=== PATIENT | male | born 1960 | race Caucasian/White ===

== ENCOUNTER 2021-04-18 14:32 | Emergency (ER) | payer OTHER, SELFPAY ==
--- NOTE | ~2021-04-18 | CT_ITS ---
EXAMINATION: CTA chest PE protocol DATE: 04/18/2021 16:43 INDICATION: Chest pain, elevated d-dimer, shortness of breath TECHNIQUE: Computed tomography angiography (CTA) of the chest was performed with 100 mL Omnipaque-350 intravenous contrast timed to evaluate the pulmonary arteries. Coronal maximum intensity projection 3D-reconstructions were created by the technologist. The dose-length product (DLP) was 438.99 mGy-cm. Automated exposure control and iterative reconstruction technique were employed. COMPARISON: None. FINDINGS: The pulmonary arteries are well-opacified. No pulmonary embolism is identified. There is mi ld dependent atelectasis. The lungs are free of focal airspace opacities. Calcified right hilar and m ediastinal lymph nodes are consistent with old granulomatous disease. No pathologically enlarged thor acic lymph nodes are identified. The heart size is normal. There is mild thoracic spondylosis. IMPRESSION: 1. No pulmonary embolism or acute cardiopulmonary abnormality. Reviewed, dictated and finalized at location [facility]. [facility]
[2021-04-18 15:16] VITALS: BP 168/97; PULSE 97; RESP 16; TEMP 36.1; O2SAT 97
--- NOTE | 2021-04-18 15:16 | ECG_ITS ---
Measurements Intervals [place] Rate: 70 P: 51 UT: 175 QRS: 14 QRSD: 103 T: 55 QT: 351 QTc: 379 Interpretive Statements SINUS RHYTHM WITH SINUS ARRHYTHMIA DELAYED PRECORDIAL R/S TRANSITION MINIMAL Q WAVES- INFERIOR LEADS BORDERLINE ECG Electronically Signed On 04-18-2021 16:09:48 [employer] by Jb Malik D.O.
[2021-04-18 15:34] LABS: Basophils Percent Auto 1.3 % (0.0-1.0); Eosinophils Absolute Auto 0.03 K/mm3 (0.02-0.50); Eosinophils Percent Auto 0.4 % (1.0-6.0); Hematocrit 43.6 % (40.0-54.0); Hemoglobin 14.6 g/dL (14.0-18.0); Immature Granulocyte Absolute 0.04 K/mm3 (0.00-0.00); Immature Granulocyte Percent A 0.5 % (0.0-0.0); Lymphocytes Absolute Auto 2.05 K/mm3 (1.10-4.50); Lymphocytes Percent Auto 26.5 % (18.0-42.0); Mean Corpuscular HGB Conc 33.5 g/dL (32.0-36.0); Mean Corpuscular Hemoglobin 28.7 pg (27.0-31.0); Mean Corpuscular Volume 85.8 fL (78.0-102.0); Mean Platelet Volume 8.5 fl (8.7-11.0); Monocytes Absolute Auto 0.64 K/mm3 (0.10-0.90); Monocytes Percent Auto 8.3 % (2.0-11.0); Neutrophils Absolute Auto 4.9 K/mm3 (1.7-7.2); Platelet Count Result 319 K/mm3 (150-420); Red Blood Count 5.08 M/mm3 (4.70-6.10); Red Cell Distribution Width 12.2 % (11.6-14.4); White Blood Count 7.8 K/mm3 (4.8-10.8)
[2021-04-18] MEDS: KETOROLAC (*BKC) 60 MG/2 ML VIAL IM (15:37)
[2021-04-18 15:52] LABS: Alanine Aminotransferase 38 U/L (16-63); Albumin Level 3.8 g/dL (3.4-5.0); Alkaline Phosphatase 129 U/L (46-116); Anion Gap 10 mmol/L (8-16); Aspartate Amino Transferase 19 U/L (15-37); Bilirubin,Total 0.3 mg/dL (0.00-1.00); Blood Urea Nitrogen 11 mg/dL (7-18); Calcium 9.5 mg/dL (8.5-10.1); Carbon Dioxide 26 mmol/L (21-32); Chloride 102 mmol/L (98-108); Estimated CRCL calculation 64 ml/min; Estimated Glomerular Filt Rate > 60; Glucose 132 mg/dL (70-99); Osmolality Calculated 287 mOsm/kg (285-295); Sodium 138 mmol/L (136-145); Total Protein 8.5 g/dL (6.4-8.2); Troponin I 6.3 ng/L (0.00-60.4)
[2021-04-18 15:55] LABS: D Dimer 4.32 mg/L (0.19-0.50)
--- NOTE | 2021-04-18 17:00 | ED.URI ---
HPI - URI/Sore Throat General Chief Complaint: Upper Respiratory Infection Stated Complaint: chest pain/headache/sore throat/Covid- last Thu Source: patient Mode of arrival: ambulatory Limitations: no limitations History of Present Illness HPI Narrative: This is a 60-year-old gentleman that presents with some pleuritic-type chest pain pain with deep inspiration started a couple of days ago call his primary care physician that was concerning mass and come to the emergency room to be evaluated. There was no chest pain no shortness of breath no fever chills no nausea vomiting no abdominal pain. Patient had a COVID test that was negative performed on this past Thursday and the patient is up-to-date with his COVID vaccines as well as his booster. Severity: moderate Pain scale (0-10): 5 Related Data Home Medications Medication Instructions Recorded Confirmed No Home Medications 04/18/21 04/18/21 Allergies Allergy/AdvReac Type Severity Reaction Status Date / Time No Known Allergies Allergy Verified 04/18/21 15:21 Review of Systems Review of Systems: All systems reviewed & are unremarkable except as noted in HPI and below PMFSH Past Medical History Medical History Patient denies medical problems Exam Const: General: no acute distress and alert Orientation/consciousness: patient oriented x3 HENMT: Head: normal to inspection Eyes: Conjunctivae: conjunctivae normal Pupils: Equal, round and reactive pupils present Neck: Neck: normal visual inspection, no lymphadenopathy and no meningeal signs Chest: Chest palpation & inspection: normal inspection of the chest Resp: Effort & Inspection: normal respiratory effort Auscultation: clear to auscultation bilaterally Cardio: Rate: regular rate Rhythm: regular rhythm GI: GI Palp: Yes Soft to palpation Percussion: Yes normal to percussion : Testes: Testes normal Urinary Catheter: Urinary Catheter: patent and draining Back/Spine/Pelvis: Back: no CVA tenderness Skin: General skin exam: normal color Rashes: no rashes Neuro: General: patient oriented x3, moves all extremities, no meningeal signs and no focal motor deficits Extrem: General: normal to inspection and no pedal edema Psych: Mental Status: mental status grossly normal Course Course Emergency Course: patient had an elevated D-dimer, with a CTA performed which was negative for pulmonary embolism, labs reviewed with patient. Vital Signs Vital signs: Vital Signs Temperature 36.1 C L 04/18/21 15:16 Pulse Rate 97 04/18/21 15:16 Respiratory Rate 16 04/18/21 15:16 Blood Pressure 168/97 H 04/18/21 15:16 Pulse Oximetry 97 04/18/21 15:16 Temperature 36.1 C L 04/18/21 15:16 Pulse Rate 97 04/18/21 15:16 Respiratory Rate 16 04/18/21 15:16 Blood Pressure 168/97 H 04/18/21 15:16 Pulse Oximetry 97 04/18/21 15:16 MDM - URI/Sore Throat Lab Data Result diagrams: 04/18/21 15:30 04/18/21 15:30 Labs: Lab Results 04/18/21 04/18/21 04/18/21 Range/Units 15:29 15:30 15:30 WBC 7.8 (4.8-10.8) K/mm3 RBC 5.08 (4.70-6.10) M/mm3 Hgb 14.6 (14.0-18.0) g/dL Hct 43.6 (40.0-54.0) % MCV 85.8 (78.0-102.0) fL MCH 28.7 (27.0-31.0) pg MCHC 33.5 (32.0-36.0) g/dL RDW 12.2 (11.6-14.4) % Plt Count 319 (150-420) K/mm3 MPV 8.5 L (8.7-11.0) fl Immature Gran % (Auto) 0.5 H (0.0-0.0) % Neut % (Auto) 63.0 (50.0-70.0) % Lymph % (Auto) 26.5 (18.0-42.0) % [place] % (Auto) 8.3 (2.0-11.0) % Eos % (Auto) 0.4 L (1.0-6.0) % Baso % (Auto) 1.3 H (0.0-1.0) % Lymph # (Auto) 2.05 (1.10-4.50) K/mm3 [place] # (Auto) 0.64 (0.10-0.90) K/mm3 Eos # (Auto) 0.03 (0.02-0.50) K/mm3 Baso # (Auto) 0.10 (0.00-0.10) K/mm3 Abs Immat Gran (auto) 0.04 H (0.00-0.00) K/mm3 Absolute Neuts (auto) 4.9 (1.7-7.2) K/mm3 Absolute Nucleated RBC
[2021-04-18 17:27] LABS: SARS-CoV-2 RNA PCR Negative (Negative)
[2021-04-18 17:47] VITALS: BP 164/93; PULSE 61; RESP 18; O2SAT 96
== END 2021-04-18 17:48 | disposition home or self-care (01) ==
PROVIDERS: Emergency Provider Emergency Medicine; PCP Physician Assistant
DX: R09.1 Pleurisy (principal); Z20.822 Contact with and (suspected) exposure to COVID-19
CPT/HCPCS: 36415; 71275; 80053; 84484; 85025; 85380; 93005; 96372; 99283; 99284; C9803; J1885; Q9967; U0003; U0005

== ENCOUNTER 2021-08-09 08:01 | Outpatient (CLI) | payer OTHER, SELFPAY ==
--- NOTE | ~2021-08-09 | CT_ITS ---
EXAMINATION: CT abdomen pelvis w con DATE: 08/09/2021 08:58 INDICATION: Nausea, vomiting, diarrhea for one week. Diverticulosis. TECHNIQUE: Computed tomography (CT) of the abdomen and pelvis was performed with 100 CC Omnipaque 350 intravenous contrast. Automated exposure control and iterative reconstruction technique were employe d. Exam dose: 892.92 mGy-cm total exam DLP. COMPARISON: None. FINDINGS: Calcified right hilar and subcarinal nodes and splenic calcified granulomas, consistent wit h old granulomatous disease. The lung bases are clear of infiltrate or consolidation. Normal heart size. No pericardial or pleural effusion. Small sliding hiatal hernia. There is diffuse hepatic steatosis. No hepatic space-occupying mass lesion. The gallbladder appears n ormal. No bile duct or pancreatic duct dilatation. No pancreatic mass lesion or calcification. Border line splenomegaly, spleen measuring up to 13.9 cm vertical dimension. Normal morphology of the adrenal glands. No renal mass lesion or urinary tract calculus or hydroureteronephrosis. There is mild diffuse urinar y bladder wall thickening and mild prostate enlargement. There is atherosclerotic calcification of the abdominal aorta and iliac arteries but no aneurysm. No intraperitoneal or retroperitoneal or pelvic mass lesion or adenopathy or ascites. Normal appendix. There is some liquid stool in the colon. No bowel obstruction or bowel wall thickeni ng, pneumatosis or intraperitoneal free air. Occasional osteosclerotic lesions are noted including at right T7 transverse process, sacrum and righ t femoral head, most likely benign bone islands. Less likely differential diagnosis would include ost eosclerotic prostate metastases. IMPRESSION: Small sliding hiatal hernia Hepatic steatosis Borderline splenomegaly Mild prostate enlargement, diffuse urinary bladder wall thickening Normal appendix There is some liquid stool the colon, consistent with history of diarrhea; no bowel obstruction or fr ee air Reviewed, dictated and finalized at [facility]. Reviewed, dictated and finalized at location [facility]. IMPRESSION: Small sliding hiatal hernia Hepatic steatosis Borderline splenomegaly Mild prostate enlargement, diffuse urinary bladder wall thickening Normal appendix There is some liquid stool the colon, consistent with history of diarrhea; no b owel obstruction or free air
[2021-08-09 08:34] LABS: Estimated Glomerular Filt Rate > 60
== END 2021-08-09 08:02 | disposition home or self-care (01) ==
LOC: CHSIMG 08:05
PROVIDERS: PCP Family Medicine; Visit Provider Physician Assistant
DX: K57.90 Diverticulosis of intestine, part unspecified, without perforation or abscess without bleeding (principal)
CPT/HCPCS: 74177; Q9967

== ENCOUNTER 2021-08-15 10:53 | Emergency (ER) | payer OTHER, SELFPAY ==
--- NOTE | ~2021-08-15 | XR_ITS ---
EXAMINATION: XR chest 2V 08/15/2021 11:29 INDICATION: Left-sided chest pain with shortness of breath PROCEDURE: 2 view chest COMPARISON: No prior studies for comparison. FINDINGS: The lungs are clear. The cardiomediastinal silhouette is within normal limits. There are no pleural effusions. There is no pneumothorax suspected. IMPRESSION: 1: NO ACUTE CARDIOPULMONARY DISEASE. Reviewed, dictated and finalized at location B.
[2021-08-15 11:04] VITALS: BP 164/88; PULSE 65; RESP 22; TEMP 36.6; O2SAT 98
--- NOTE | 2021-08-15 11:15 | ECG_ITS ---
Measurements Intervals [place] Rate: 61 P: 56 RI: 185 QRS: 66 QRSD: 102 T: 74 QT: 366 QTc: 371 Interpretive Statements SINUS RHYTHM DELAYED PRECORDIAL R/S TRANSITION MINIMAL Q WAVES- INFERIOR LEADS BASELINE ARTIFACT- I, II ,III, AVR, AVL, AVF BORDERLINE ECG Electronically Signed On 08-15-2021 12:35:17 CDT by Jb Malik D.O.
[2021-08-15] MEDS: MAG HYDROX/ALUMINUM HYD/SIMETH 30 ML, PHENobarb/HYOSCY/ATROPINE/SCOP 32.4 MG, LIDOCAINE... PO (11:20)
[2021-08-15 11:54] LABS: Basophils Absolute Auto 0.09 K/mm3 (0.00-0.10); Basophils Percent Auto 1.3 % (0.0-1.0); Eosinophils Absolute Auto 0.05 K/mm3 (0.02-0.50); Eosinophils Percent Auto 0.7 % (1.0-6.0); Hematocrit 42.9 % (40.0-54.0); Hemoglobin 14.5 g/dL (14.0-18.0); Immature Granulocyte Absolute 0.07 K/mm3 (0.00-0.00); Lymphocytes Absolute Auto 1.79 K/mm3 (1.10-4.50); Lymphocytes Percent Auto 25.1 % (18.0-42.0); Mean Corpuscular HGB Conc 33.8 g/dL (32.0-36.0); Mean Corpuscular Hemoglobin 29.2 pg (27.0-31.0); Mean Corpuscular Volume 86.5 fL (78.0-102.0); Mean Platelet Volume 8.9 fl (8.7-11.0); Monocytes Absolute Auto 0.51 K/mm3 (0.10-0.90); Monocytes Percent Auto 7.2 % (2.0-11.0); Neutrophils Absolute Auto 4.6 K/mm3 (1.7-7.2); Neutrophils Percent Auto 64.7 % (50.0-70.0); Platelet Count Result 276 K/mm3 (150-420); Red Blood Count 4.96 M/mm3 (4.70-6.10); Red Cell Distribution Width 12.1 % (11.6-14.4); White Blood Count 7.1 K/mm3 (4.8-10.8)
[2021-08-15 12:02] LABS: INR 0.9; Partial Thromboplastin Time 27.9 SEC (23.90-30.70); Prothrombin Time 10.1 Seconds (9.50-12.10)
--- NOTE | 2021-08-15 12:30 | PC.NURSE ---
patient is feeling much better since GI cocktail
[2021-08-15 13:27] LABS: Alanine Aminotransferase 45 U/L (6-50); Albumin Level 4.3 g/dL (3.5-5.1); Alkaline Phosphatase 153 U/L (38-126); Anion Gap 11 mmol/L (8-16); Aspartate Amino Transferase 31 U/L (17-59); Bilirubin,Total 0.2 mg/dL (0.2-1.3); Blood Urea Nitrogen 6 mg/dL (9-20); Calcium 9.6 mg/dL (8.4-10.2); Carbon Dioxide 26 mmol/L (22-30); Chloride 106 mmol/L (98-107); Estimated Glomerular Filt Rate > 60; Glucose 128 mg/dL (65-110); Lipase 77 U/L (23-300); Osmolality Calculated 295 mOsm/kg (285-295); Potassium 4.2 mmol/L (3.4-5.0); Sodium 143 mmol/L (137-145)
[2021-08-15 13:37] LABS: Troponin I < 0.012 ng/mL (0.000-0.034)
[2021-08-15 13:54] LABS: NT Pro B Type Natriuretic Pept < 11 pg/mL (5-100)
--- NOTE | 2021-08-15 14:19 | ED.ABDPAIN ---
HPI - Abdominal Pain General Chief Complaint: Abdominal Pain Stated Complaint: CHEST PAIN HERNIA? Source: patient History of Present Illness HPI narrative: This is a 6-year-old gentleman that presents after he had epigastric discomfort has a history of GERD and hiatal hernia was told by his primary care to come to the ER for evaluation of chest pain. Pain patient does not describe chest pain but describes epigastric burning with a fullness with epigastric tenderness with no nausea vomiting no shortness of breath no radiation of of pain no nausea or vomiting. MD elicited complaint: abdominal pain Onset (ago): week(s) Pain Consistency: intermittent Severity: mild Radiation: epigastric Related Data Home Medications Medication Instructions Recorded Confirmed escitalopram oxalate 20 mg PO DAILY 08/15/21 08/15/21 pantoprazole 40 mg PO DAILY 08/15/21 08/15/21 Allergies Allergy/AdvReac Type Severity Reaction Status Date / Time No Known Allergies Allergy Verified 08/15/21 11:11 Review of Systems Review of Systems: All systems reviewed & are unremarkable except as noted in HPI and below PMFSH Past Medical History Medical History Depression High cholesterol Hypertension Surgical History Surgical History H/O inguinal hernia repair right side Family History Family History Father Lung cancer Mother Liver disease Alcoholism Other Kidney disease Social History Social History Smoking packs per day: 1 Smoking cigarettes per day: 20.0 Years smoked: 20 Smoking pack-years: 20.00 Smoking status: Former smoker Tobacco type: cigarettes Alcohol intake: former Substance use: never Substance use type: does not use Exam Const: General: no acute distress and alert Orientation/consciousness: patient oriented x3 HENMT: Head: normal to inspection Eyes: Conjunctivae: conjunctivae normal Pupils: Equal, round and reactive pupils present Neck: Neck: normal visual inspection, no lymphadenopathy and no meningeal signs Chest: Chest palpation & inspection: normal inspection of the chest Resp: Effort & Inspection: normal respiratory effort Auscultation: clear to auscultation bilaterally Cardio: Rate: regular rate Rhythm: regular rhythm GI: GI Palp: Yes Soft to palpation and Yes Tenderness to palpation present (GI) ( Epigastric tenderness with palpation) Back/Spine/Pelvis: Back: no CVA tenderness Skin: General skin exam: normal color Rashes: no rashes Neuro: General: patient oriented x3 and moves all extremities Extrem: General: normal to inspection and no pedal edema Psych: Mental Status: mental status grossly normal Course Course Emergency Course: patient's EKG x-rays and labs reviewed patient did receive a GI cocktail and patient's symptoms have improved advised patient to increase Protonix to twice daily and follow up with his primary care physician. Vital Signs Vital signs: Vital Signs Temperature 36.6 C 08/15/21 11:04 Pulse Rate 65 08/15/21 11:04 Respiratory Rate 22 H 08/15/21 11:04 Blood Pressure 164/88 H 08/15/21 11:04 Pulse Oximetry 98 08/15/21 11:04 Temperature 36.6 C 08/15/21 11:04 Pulse Rate 65 08/15/21 11:04 Respiratory Rate 22 H 08/15/21 11:04 Blood Pressure 164/88 H 08/15/21 11:04 Pulse Oximetry 98 08/15/21 11:04 MDM - Abdominal Pain Lab Data Result diagrams: 08/15/21 11:36 08/15/21 11:36 Labs: Lab Results 08/15/21 08/15/21 08/15/21 Range/Units 11:36 11:36 11:36 WBC 7.1 (4.8-10.8) K/mm3 RBC 4.96 (4.70-6.10) M/mm3 Hgb 14.5 (14.0-18.0) g/dL Hct 42.9 (40.0-54.0) % MCV 86.5 (78.0-102.0) fL MCH 29.2 (27.0-31.0) pg MCHC 33.8 (32.0-36.0)
[2021-08-15 14:25] VITALS: BP 151/91; PULSE 64; RESP 20; TEMP 36.4; O2SAT 95
== END 2021-08-15 14:33 | disposition home or self-care (01) ==
PROVIDERS: Emergency Provider Emergency Medicine; PCP Family Medicine
DX: K21.9 Gastro-esophageal reflux disease without esophagitis (principal)
CPT/HCPCS: 36415; 71046; 80053; 83690; 83880; 84484; 85025; 85610; 85730; 93005; 99284; A9270

== ENCOUNTER 2021-08-30 08:01 | Outpatient (CLI) | payer OTHER, SELFPAY ==
--- NOTE | ~2021-08-30 | US_ITS ---
US abdomen limited INDICATION: Epigastric pain for one month PROCEDURE: Realtime right upper abdominal ultrasound. COMPARISON: No prior studies for comparison. FINDINGS: The pancreas appears echogenic without discrete mass. Liver echotexture is echogenic, consistent with fatty infiltration. There is normal directional flow in the portal vein. The gallbladder is normal without stones, gallbladder wall thickening or pericholecystic fluid. Comm on bile duct measures 4.5 mm. No sonographic Bautista's sign. IMPRESSION: 1: Hepatic steatosis. 2: Echogenic pancreas, nonspecific. Consider pancreatitis in the appropriate clinical setting. Reviewed, dictated and finalized at location A. IMPRESSION: 1: Hepatic steatosis. 2: Echogenic pancreas, nonspecific. Consider pancreatitis in the appropriate c linical setting.
== END 2021-08-30 08:02 | disposition home or self-care (01) ==
LOC: CHSIMG 08:03
PROVIDERS: PCP Registered Nurse; Visit Provider Surgery
DX: R10.13 Epigastric pain (principal)
CPT/HCPCS: 76705